=== PATIENT | male | born 1960 ===

== ENCOUNTER 2018-08-26 09:55 | Outpatient (CLI) | payer OTHER ==
[~2018-08-26] VITALS: Ht 180.3 cm; Wt 103.4 kg
== END 2018-08-26 10:15 | disposition home or self-care (01) ==
LOC: OFIC 805 09:55
DX: R22.1 Localized swelling, mass and lump, neck (principal); J31.0 Chronic rhinitis

== ENCOUNTER 2018-09-07 07:43 | Outpatient (CLI) | payer OTHER | END 2018-09-07 07:45 | disposition home or self-care (01) | LOC: SONOGRAMA 07:43 | DX: R22.1 Localized swelling, mass and lump, neck (principal) ==

== ENCOUNTER 2018-10-14 09:13 | Outpatient (CLI) | payer OTHER ==
[~2018-10-14] VITALS: Ht 152.4 cm; Wt 103.4 kg
== END 2018-10-14 09:30 | disposition home or self-care (01) ==
LOC: OFIC 805 09:13
DX: R22.1 Localized swelling, mass and lump, neck (principal); J31.0 Chronic rhinitis; D17.79 Benign lipomatous neoplasm of other sites

== ENCOUNTER 2022-03-24 13:13 | Emergency (ER) | payer OTHER ==
[~2022-03-24] VITALS: Ht 180.3 cm; Wt 113.4 kg
== END 2022-03-24 20:00 | disposition home or self-care (01) ==
LOC: ER 13:13
DX: K62.5 Hemorrhage of anus and rectum (principal); N40.0 Benign prostatic hyperplasia without lower urinary tract symptoms; K57.30 Diverticulosis of large intestine without perforation or abscess without bleeding